=== PATIENT | female | born 1940 | race Caucasian/White ===

== ENCOUNTER 2018-12-27 08:00 | Outpatient (CLI) | payer MEDICARE ==
[2018-12-27 18:06] LABS: ALBUMIN 3.4 g/dL (3.2-5.5); CALCIUM 10.9 mg/dL (8.5-10.3); PHOSPHORUS 3.6 mg/dL (2.5-4.6)
== END 2018-12-27 23:59 | disposition home or self-care (01) ==
LOC: LAB.R 08:00
PROVIDERS: ATTEND Internal Medicine
DX: N18.3 Chronic kidney disease, stage 3 (moderate) (principal)
CPT/HCPCS: 80069

== ENCOUNTER 2019-05-24 11:32 | Outpatient (CLI) | payer MEDICARE ==
[2019-05-24 17:09] LABS: BASOPHILS % (AUTO) 0.3 %; EOSINOPHILS # (AUTO) 0.2 10^3/uL (0.0-0.7); EOSINOPHILS % (AUTO) 2.6 %; HGB - HEMOGLOBIN 12.7 g/dL (12.0-16.0); LYMPHOCYTES # (AUTO) 2.7 10^3/uL (1.5-3.5); MEAN CORPUSCULAR HEMOGLOBIN 28.2 pg (27.0-31.0); MEAN CORPUSCULAR VOLUME 90.9 fL (81.0-99.0); MEAN PLATELET VOLUME 11.1 fL (7.9-10.8); MONOCYTES # (AUTO) 0.6 10^3/uL (0.0-1.0); MONOCYTES % (AUTO) 6.2 %; NEUTROPHILS # (AUTO) 5.1 10^3/uL (1.5-6.6); NEUTROPHILS % (AUTO) 58.1 %; PLT - PLATELET COUNT 339 10^3/uL (130-450); RED BLOOD COUNT 4.51 10^6/uL (4.20-5.40); RED CELL DISTRIBUTION WIDTH 13.6 % (12.0-15.0); WHITE BLOOD COUNT 8.8 x10^3/uL (4.8-10.8)
[2019-05-24 17:23] LABS: ALBUMIN 3.2 g/dL (3.2-5.5); ALBUMIN/GLOBULIN RATIO 0.9 (1.0-2.2); BILIRUBIN,TOTAL 0.3 mg/dL (0.2-1.0); CALCIUM 10.9 mg/dL (8.5-10.3); CREATININE 1.1 mg/dL (0.4-1.0); TOTAL PROTEIN 6.6 g/dL (6.7-8.2)
[2019-05-26 21:14] LABS: ALBUMIN 3.6 g/dL (3.8-4.8); ALPHA 1 GLOBULIN 0.3 g/dL (0.2-0.3); ALPHA 2 GLOBULIN 0.7 g/dL (0.5-0.9); BETA 1 GLOBULIN 0.5 g/dL (0.4-0.6); BETA 2 GLOBULIN 0.5 g/dL (0.2-0.5)
== END 2019-05-24 23:59 | disposition home or self-care (01) ==
LOC: LAB.R 11:32
DX: N18.3 Chronic kidney disease, stage 3 (moderate) (principal); I50.32 Chronic diastolic (congestive) heart failure
CPT/HCPCS: 80053; 81599; 82306; 82652; 84155; 84165; 85025

== ENCOUNTER 2019-06-07 11:30 | Outpatient (CLI) | payer MEDICARE | END 2019-06-07 23:59 | disposition home or self-care (01) | LOC: LAB.R 11:30 | PROVIDERS: ATTEND Internal Medicine | DX: E83.52 Hypercalcemia (principal) | CPT/HCPCS: 84443 ==